=== PATIENT | male | born 1945 | race Caucasian/White ===

== ENCOUNTER → 2018-08-14 | Outpatient (CLI) | payer BC | LOC: M.WC 08:44 | DX: L89.312 Pressure ulcer of right buttock, stage 2 (principal); G20 Parkinson's disease; M85.88 Other specified disorders of bone density and structure, other site; Z85.828 Personal history of other malignant neoplasm of skin; Z79.82 Long term (current) use of aspirin ==

== ENCOUNTER → 2018-08-21 | Outpatient (CLI) | payer BC | LOC: M.WC 05:32 | DX: L89.312 Pressure ulcer of right buttock, stage 2 (principal); L89.322 Pressure ulcer of left buttock, stage 2; G20 Parkinson's disease; M85.88 Other specified disorders of bone density and structure, other site; Z85.828 Personal history of other malignant neoplasm of skin ==

== ENCOUNTER → 2018-08-28 | Outpatient (CLI) | payer BC | LOC: M.WC 04:54 | DX: L89.312 Pressure ulcer of right buttock, stage 2 (principal); L89.322 Pressure ulcer of left buttock, stage 2; G20 Parkinson's disease; M85.88 Other specified disorders of bone density and structure, other site; Z85.828 Personal history of other malignant neoplasm of skin ==

== ENCOUNTER → 2018-09-04 | Outpatient (CLI) | payer BC | LOC: M.WC 04:18 | DX: L89.312 Pressure ulcer of right buttock, stage 2 (principal); L89.322 Pressure ulcer of left buttock, stage 2; G20 Parkinson's disease; M85.88 Other specified disorders of bone density and structure, other site; Z85.828 Personal history of other malignant neoplasm of skin ==

== ENCOUNTER → 2019-06-05 | Outpatient (CLI) | payer BC | LOC: M.WC 09:59 | DX: L89.313 Pressure ulcer of right buttock, stage 3 (principal); M85.80 Other specified disorders of bone density and structure, unspecified site; G20 Parkinson's disease; Z85.828 Personal history of other malignant neoplasm of skin; Z79.82 Long term (current) use of aspirin ==